=== PATIENT | female | born 1995 | race Caucasian/White ===

== ENCOUNTER → 2022-09-18 06:41 | Outpatient (CLI) | payer OTHER, SELFPAY ==
--- NOTE | 2022-09-18 | DI.US.S_ITS ---
PROCEDURE: US PELVIC COMPLETE INDICATIONS: CHECK IUD TECHNIQUE: Real-time scanning was performed of the pelvic organs, with image documentation. Additional endovaginal scanning was necessary due to incomplete visualization of the adnexal and endometrial structures by transabdominal scanning. COMPARISON: None. FINDINGS: Uterus: Uterus is anteverted and normal in size at 6.8 x 2.6 x 4.1 cm. The myometrium is homogeneous. No discrete uterine fibroids. The endometrium measures 3.2 mm combined thickness. No endometrial mass or fluid is seen. Intrauterine device is seen in its normal central endometrial location. Ovaries: The right ovary measures 2.4 x 3.1 x 1.9 cm, with a calculated ovarian volume of 7.3 cc. The left ovary measures 1.1 x 2.8 x 1.4 cm, with a calculated ovarian volume of 2.3 cc. The ovaries have a normal sonographic appearance. Less than 12 follicles can be seen in each ovary. No adnexal masses are seen. Other: No pathologic free abdominal or pelvic fluid. IMPRESSION: Intrauterine device is noted in its normal central endometrial location. No endometrial mass or fluid. No discrete uterine fibroids. Bilateral ovaries are within normal limits. We strive to produce accurate, complete, and clear reports of imaging services. To assist us in improving patient care, this report was composed using standard report templates and voice recognition software. Therefore, it may contain abnormal punctuation, insertions and/or omissions. Occasional wrong-word or sound-alike substitutions may occur. Though we review the report and make efforts to correct it, we do recommend that the report be read carefully in proper context to recognize any text inaccuracies. Dictated by: Mariano Montes De Oca M.D. on 09/18/2022 at 8:20 Approved by: Mariano Montes De Oca M.D. on 09/18/2022 at 8:21
== END ==
PROVIDERS: Referring Provider Physician Assistant; Visit Provider Physician Assistant
DX: T83.32XA Displacement of intrauterine contraceptive device, initial encounter (principal)
CPT/HCPCS: 76830; 76856

== ENCOUNTER → 2023-03-18 15:18 | Outpatient (CLI) | payer OTHER, SELFPAY ==
--- NOTE | 2023-03-18 | DI.ECHO.S_ITS ---
[facility] +---------+ : : [address] : : : : [id number] : : : : Phone: [phone]---------+ Echocardiogram Report + + :Name: KENZIE HASTINGS Study Date: 03/18/2023 Height: 66 in : :[facility] ReadingLocation: Weight: 123 lb : : Gender: Female BSA: 1.6 m2 : :: 1995 Age: 27 yrs BP: 129/72 mmHg: :Reason For Study: CHEST PAIN HR: 64 : :Ordering Physician: LIAM, : :LISA Performed By: MANUEL CARREON : :Referring: LISA WHEELER : + + Interpretation Summary TDS due to breast implants. The left ventricle is normal in size and wall thickness. The ejection fraction is estimated to be 65-70%. The right ventricle is grossly normal size. The right ventricular systolic function is normal. No significant valvular pathology seen. Procedure: A two-dimensional transthoracic echocardiogram with color flow and Doppler was performed. The study quality was technically difficult. There is no prior echocardiogram noted for this patient. The patient was in normal sinus rhythm during the exam. Left Ventricle: The left ventricle is normal in size and wall thickness. There is no thrombus. Left ventricular systolic function is normal. The ejection fraction is estimated to be 65-70%. There are no obvious focal wall motion abnormalities noted but poor endocardial definition reduces the sensitivity for the detection of such. Diastolic parameters suggest probable normal left ventricular diastolic function and normal filling pressures. Right Ventricle: The right ventricle is grossly normal size. The right ventricular systolic function is normal. Atria: Both atria are normal in size. There is no Doppler evidence for an interatrial shunt. Mitral Valve: The mitral valve is normal in structure and function. There is no mitral regurgitation noted. Aortic Valve: The aortic valve is trileaflet. The aortic valve opens well. There is no aortic valve stenosis. No aortic regurgitation is present. Tricuspid Valve: The tricuspid valve is normal in structure and function. No tricuspid regurgitation. Pulmonary artery pressures cannot be estimated because of the lack of a measurable TR jet velocity. Pulmonic Valve: The pulmonic valve is not well seen, but is grossly normal. There is no pulmonic valvular regurgitation. Great Vessels: The aortic root is normal size. The IVC is of normal diameter and collapses less than 50% with a sniff. This suggests a right atrial pressure of 8 mm Hg. Pericardium/ Pleura There is no pericardial effusion. There is no pleural effusion. MMode/2D Measurements & Calculations LVIDd: 4.4 cm LVOT diam: 1.9 cm LVIDs: 2.5 cm Ao root diam: 2.8 cm FS: 43.2 % IVSd: 0.70 cm LVPWd: 0.80 cm LV patel. diameter/BSA (cm/m^2): 2.7 LV sys. diameter/BSA (cm/m^2): 1.5 TAPSE_phl: 2.6 cm Doppler Measurements & Calculations Ao V2 max: 120.0 cm/sec LVOT Max Otto: 101.0 cm/sec Ao V2 mean: 88.3 cm/sec LV V1 max P.1 mmHg Ao max P.0 mmHg LV V1 VTI: 22.5 cm Ao mean P.0 mmHg ELISSA(I,D): 2.3 cm2 Ao V2 VTI: 27.2 cm ELISSA(V,D): 2.4 cm2 sev ratio: 0.83 ELISSA indexed to BSA (cm^2/m^2): 1.4 MV E max otto: 75.0 cm/sec PA V2 max: 108.0 cm/sec MV A max otto: 54.0 cm/sec PA V2 mean: 77.4 cm/sec MV E/A: 1.4 PA mean P.0 mmHg Med Peak E' Otto: 9.2 cm/sec PA pr(Accel): 20.5 mmHg E/E' med: 8.2 Lat Peak E' Otto: 15.5 cm/sec E/E' lat: 4.8 E/e' average: 6.5 MV dec time: 0.24 sec SV(LVOT): 63.8 ml AV VR_phl: 0.84 ELISSA(VTI)/BSA_phl: 1.4 MV P1/2t-pr_phl: 69.0 msec Reading Physician:04:36 PM
--- NOTE | 2023-03-18 16:02 | DI.NM.S_ITS ---
PROCEDURE: NM EXERCISE TREADMILL NON NUC COMPARISON: None INDICATIONS: Chest pain FINDINGS: Rest ECG sinus rhythm. Russell protocol 12:00, maximum heart rate 163 bpm (85% peak predicted), maximum blood pressure 146/80, 12.8 METS, RENU -18%. Stress ECG sinus tachycardia, no ST segment changes or arrhythmias. The patient did not complain of exercise-induced chest pain. IMPRESSION: Low risk study. No evidence of exercise-induced ischemia or arrhythmia. Normal hemodynamic response. Good exercise capacity. Dictated by: Yelena Samaniego D.O. on 03/19/2023 at 16:53 Approved by: Yelena Samaniego D.O. on 03/19/2023 at 16:55
== END ==
PROVIDERS: Referring Provider Internal Medicine Cardiovascular Disease; Visit Provider Internal Medicine Cardiovascular Disease
DX: R42 Dizziness and giddiness; R07.89 Other chest pain; R06.02 Shortness of breath; R00.2 Palpitations
CPT/HCPCS: 93017; 93306

== ENCOUNTER → 2024-08-20 09:46 | Outpatient (CLI) | payer OTHER, SELFPAY ==
--- NOTE | 2024-08-20 09:47 | DI.NM.S_ITS ---
PROCEDURE: NM HIDA WITH CCK PHARMACEUTICAL: 5.5 mCi Tc-99m mebrofenin IV; 1.1 mcg CCK IV. INDICATIONS: Please evaluate for biliary dyskinesia TECHNIQUE: Following intravenous administration of Tc-99m mebrofenin, sequential anterior abdominal images were obtained. To evaluate the contractile response of the gallbladder in response to Cholecystokinin (CCK), sincalide (0.02 ?g/kg) was administered by slow intravenous infusion approximately 60 minutes after the administration of the radiopharmaceutical. Sequential imaging was continued for 30 minutes after the start of CCK infusion. Gallbladder ejection fraction was calculated. COMPARISON: None. FINDINGS: Biliary scan: There is normal tracer uptake and excretion by the liver. There is normal visualization of the intrahepatic ducts, common bile duct, and gallbladder. There is normal tracer transit into the duodenum. CCK stimulation: There is normal contractile response of the gallbladder to CCK infusion. The calculated gallbladder ejection fraction is 79%; normal values are above 35%. The CCK administration did not reproduce the right upper quadrant pain symptoms. It has been shown that any patient abdominal pain after CCK administration is related to the rate of CCK injection, rather than to any underlying gallbladder disease (Clinical Nuclear Medicine 2012; 37: 63-70. Journal of Nuclear Medicine 2014; 55: 1-9). IMPRESSION: Normal study, with a normal gallbladder ejection fraction. Dictated by: Luis Alberto Abel M.D. on 08/20/2024 at 12:44 Approved by: Luis Alberto Abel M.D. on 08/20/2024 at 12:45
== END ==
PROVIDERS: PCP Nurse Practitioner Family; Referring Provider Surgery; Visit Provider Surgery
DX: R10.9 Unspecified abdominal pain (principal)
CPT/HCPCS: 78227; A9537; J2805

== ENCOUNTER 2024-10-02 14:52 | Day surgery (SDC) | payer OTHER, SELFPAY ==
--- NOTE | 2024-10-02 | PATH_ITS ---
[facility] Accession Number: [id number] No. of containers..04 Tissue . 01 Material submitted: . PART A: gastrointestinal site - GASTRIC PART B: small bowel - TERMINAL ILEUM PART C: colon - RANDOM COLON PART D: colon - SIGMOID POLYP . 01 Diagnosis: A. STOMACH, BIOPSY: Gastric antral and body mucosa with mild chronic inflamamtion. Negative for Helicobacter organisms by immunohistochemistry. Negative for intestinal metaplasia. Negative for dysplasia and malignancy. . B. TERMINAL ILEUM, BIOPSY: Mild active ileitis; please see comment. Negative for granulomas, dysplasia, or malignancy. . C. RANDOM COLON, BIOPSY: Colonic mucosa with no diagnostic abnormality. Negative for active, chronic, and microscopic colitis. Negative for dysplasia and malignancy. . D. SIGMOID COLON POLYP: Inflammatory polyp. Negative for dysplasia and malignancy. [facility] 10/06/2024 1134 Local . 01 Comment: B. The findings in the terminal ileum biopsy raise a differential diagnosis including infection, drug/toxin induced injury, and in the appropriate clinical setting, idiopathic inflammatory bowel disease. . 01 Electronically signed: . Gatito Zaldivar MD, PhD, Pathologist NPI- [id number] . 01 Gross description: . A. Received in formalin, labeled with two patient identifiers and designated 1. Gastric, and consists of two hylton-brown, irregular soft tissues measuring 0.2 cm and 0.3 cm in greatest dimension, which are entirely submitted in cassette A1. B. Received in formalin, labeled with two patient identifiers and designated 2. Terminal ileum, and consists of four hylton-brown, irregular soft tissues averaging 0.2 cm in greatest dimension, which are entirely submitted in cassette B1. C. Received in formalin, labeled with two patient identifiers and designated 3. Random colon, and consists of six hylton-brown, irregular soft tissues ranging from 0.1 cm up to 0.4 cm in greatest dimension, which are entirely submitted in cassette C1. D. Received in formalin, labeled with two patient identifiers and designated 4. Sigmoid polyp, and consists of a 1.2 x 0.6 x 0.5 cm, hylton, polypoid tissue which is inked at the base, bisected, and entirely submitted in cassette D1. ([id number]) /FRR 10/03/2024 1352 Local . 01 Microscopic: . A. An immunohistochemical stain was performed to evaluate for Helicobacter organisms and is negative. The control stain showed appropriate reactivity. . . * This test was developed and the performance characteristics were validated by [employer]. It has not been cleared or approved by the U.S. Food and Drug Administration. . 01 Pathologist provided ICD-10: R10.9, R10.13, K52.9, K51.40, K29.70 . 01 CPT . 235978, 210748, 234283, [id number], [id number] Specimen Comment: A courtesy copy of this report has been sent to [phone] Performed at: [address] [address], [place], [place] [id number] MD Kelton Wilhelm MD Phone: [phone]
[2024-10-02 15:06] VITALS: BP 132/90; PULSE 95; RESP 16; TEMP 36.5; O2SAT 100
--- NOTE | 2024-10-02 15:14 | PM.HP.1 ---
History of Present Illness History of Present Illness Date Patient Seen: 10/02/24 Time Patient Seen: 15:14 Chief complaint: EGD & Colonoscopy Narrative: 29-year-old woman with abdominal pain here for diagnostic esophagogastroduodenoscopy and colonoscopy. No interval change in health since last seen July 2024 [facility] Social History Smoking Status: Never smoker Meds Home Medications and Allergies Home Medications Medication Instructions Recorded Confirmed Type diclofenac sodium 75 mg 75 mg PO BID 07/23/24 10/02/24 History tablet,delayed release spironolactone 50 mg tablet 50 mg PO DAILY 07/23/24 10/02/24 History tretinoin 0.05 % topical cream 1 applic topical BEDTIME 07/23/24 10/02/24 History sodium,potassium,mag sulfates 17.5 See Rx Instructions PO .COMPLEX 08/27/24 Rx gram-3.13 gram-1.6 gram oral soln #354 mL (Suprep Bowel Prep Kit) Allergies Allergy/AdvReac Type Severity Reaction Status Date / Time Penicillins Allergy Verified 10/02/24 15:18 Exam Vital Signs (past 8 hours): - 10/02/24 15:06 Temperature 97.7 F Pulse Rate 95 H Respiratory Rate 16 Blood Pressure 132/90 Pulse Oximetry 100 Oxygen Delivery Method Room Air Oxygen Delivery Method Room Air Narrative Exam Narrative: General adult woman alert oriented no acute distress Chest nonlabored respiration Extremities warm well perfused Assessment & Plan Assessment and plan (1) Abdominal pain: Qualifiers: Abdominal location: epigastric Qualified Code(s): R10.13 - Epigastric pain Status: Acute Assessment & Plan narrative: Diagnostic esophagogastroduodenoscopy colonoscopy indicated unexplained. Technical details were discussed. Risks, benefits, alternatives explained. Risks including but not limited to myocardial infarction, aspiration, bleeding, pain, missed lesion, incomplete examination, need for further radiographic studies, intestinal injury, and need for major abdominal surgery were discussed. All questions were answered to their satisfaction, and they are in agreement with this plan. Time-Based Coding :: [TOTAL MINUTES] spent with patient and on the chart (including review of chart, obtaining history, exam, reviewing outside data, placing orders, documenting exam and treatment plan, and counseling patient) on [DATE].
--- NOTE | 2024-10-02 15:32 | PM.OP.EC ---
Operative Date/Time/Diagnoses Date of procedure: 10/02/24 Time of procedure: 15:32 Pre-op diagnosis: Abdominal pain Procedure & Clinicians Study performed: Diagnostic esophagogastroduodenoscopy and colonoscopy Same procedure as scheduled: Yes Indications: Abdominal pain Surgeon: Shiva Goodman Procedure Notes Procedure in detail: The history and physical was performed/updated and the patient is ASA class is 2. The procedure was discussed in detail with the patient. Potential risks complications including infection, bleeding, missed diagnosis, perforation, need for surgery, and were explained. Their questions were answered and informed consent was obtained. Patient placed in left lateral decubitus position. Time out was performed. Procedural sedation was administered by Anesthesia. A bite block was placed. the scope was inserted into the mouth and advanced through the esophagus and into the stomach. the pylorus was intubated and the duodenum was examined to the 2nd portion.. The scope was retroflexed within the stomach. The stomach was then decompressed and scope pulled back to the GE junction. The scope was then removed Examination began with a thorough inspection of the perianal area there was no evidence of fissures, fistulae, external hemorrhoids or cutaneous malignancy. The colonoscopy scope was then placed into the anal canal and was advanced to the cecum, which was identified by the ileocecal valve, the appendiceal orifice and the confluence of the taenia. The scope was then slowly withdrawn examining colon thoroughly in all directions, irrigating it of any residual stool. FINDINGS Slightly friable gastric mucosa. Random gastric biopsies taken with forceps. Slight inflammation within the distal colon. Random colonic biopsies taken with forceps. Terminal ileum intubated also demonstrates mild inflammation and random biopsies of the terminal ileum were performed 5 mm polyp pedunculated within the sigmoid colon at 30 cm from the verge removed with cold snare The patient tolerated the procedure well. They will be discharged once criteria are met. The prep was of good/excellent quality. The withdrawl time was 15 minutes. Specimen(s): other (Gastric biopsy, terminal ileum biopsy, random colonic biopsy, sigmoid polyp) Impression: Colonic polyp x1 Post-procedure Plan for aftercare: We will notify with biopsy results Disposition: same day surgery
[2024-10-02 16:09] VITALS: BP 104/75; PULSE 80; RESP 20; TEMP 36.3; O2SAT 97
[2024-10-02 16:13] VITALS: BP 102/72; PULSE 62; RESP 17; O2SAT 99
[2024-10-02 16:22] VITALS: BP 112/80; PULSE 62; RESP 11; TEMP 36.3; O2SAT 100
== END 2024-10-02 16:39 | disposition home or self-care (01) ==
PROVIDERS: PCP Nurse Practitioner Family; Referring Provider Surgery; Visit Provider Surgery
PROC: 0DJ08ZZ Inspection of Upper Intestinal Tract, Via Natural or Artificial Opening Endoscopic (ICD-10-PCS; CPT 43235; principal; 2024-10-02 15:45)
PROC: 0DJD8ZZ Inspection of Lower Intestinal Tract, Via Natural or Artificial Opening Endoscopic (ICD-10-PCS; CPT 45378; 2024-10-02 15:45)
DX: R10.9 Unspecified abdominal pain (principal); K29.50 Unspecified chronic gastritis without bleeding; K52.9 Noninfective gastroenteritis and colitis, unspecified; K51.40 Inflammatory polyps of colon without complications
CPT/HCPCS: 45385; 45380; 43239; 81025; J2704